=== PATIENT | female | born 1985 | race Caucasian/White ===

== ENCOUNTER 2022-05-24 17:51 | Inpatient (IN) | payer OTHER ==
[2022-05-24 18:43] VITALS: BMI 26.5
[2022-05-24] MEDS ORDERED: IBUPROFEN 400 MG TABLET (FP) PO PRN (19:58)
[2022-05-24] MEDS ORDERED: BISMUTH SUBSALICYLATE 524 MG/30 ML PO PRN (19:58)
[2022-05-24] MEDS ORDERED: guaiFENesin 600 MG TABLET.ER (FP) PO PRN (19:58)
[2022-05-24] MEDS ORDERED: MAG HYDROX/AL HYDROX/SIMETH 30 ML UNIT-DOSE CUP PO PRN (19:58)
[2022-05-24] MEDS ORDERED: BENZOCAINE/MENTHOL (CHLORASEPTIC ) LOZENGE MM PRN (19:58)
[2022-05-24] MEDS ORDERED: P-EPHED 60MG/TRIPROLIDI 2.5MG TABLET PO PRN (19:58)
[2022-05-24] MEDS ORDERED: NICOTINE 10 MG CARTRIDGE (INHALER) IH PRN (19:58)
[2022-05-24] MEDS ORDERED: POLYETHYLENE GLYCOL (HEALTHYLAX) 3350 17 GM PACKET PO PRN (19:58)
[2022-05-24] MEDS ORDERED: IBUPROFEN 600 MG TABLET (FP) PO PRN (19:58)
[2022-05-24] MEDS ORDERED: BENZONATATE 200 MG CAPSULE PO PRN (19:58)
[2022-05-24] MEDS ORDERED: DICYCLOMINE HCL 10 MG CAPSULE PO PRN (19:58)
[2022-05-24] MEDS ORDERED: LOPERAMIDE HCL 2 MG CAPSULE PO PRN (19:58)
[2022-05-24] MEDS ORDERED: MAGNESIUM HYDROX 2400MG/30ML ORAL SUSPENSION 30 ML CUP PO PRN (19:58)
[2022-05-24] MEDS ORDERED: chlordiazePOXIDE HCL 25 MG CAPSULE PO PRN (20:00)
[2022-05-24] MEDS ORDERED: chlordiazePOXIDE HCL 25 MG CAPSULE ONE (20:41)
[2022-05-24] MEDS ORDERED: ONDANSETRON *ODT* 4 MG TABLET ONE (20:41)
[2022-05-24] MEDS ORDERED: chlordiazePOXIDE HCL 25 MG CAPSULE PO ONE (20:45)
[2022-05-24] MEDS: ONDANSETRON *ODT* 4 MG TABLET SL PRN (20:48)
[2022-05-24] MEDS: MELATONIN 5 MG TABLETS PO SCH (22:33)
[2022-05-24] MEDS: BACITRACIN 0.9 GM PACKET TP SCH (22:33)
[2022-05-24] MEDS: THIAMINE HCL 100 MG TABLET (FP) PO SCH (22:34)
[2022-05-24] MEDS: chlordiazePOXIDE HCL 25 MG CAPSULE PO SCH (22:34)
[2022-05-24] MEDS: METHOCARBAMOL 500 MG TABLET PO PRN (22:37)
[2022-05-25] MEDS: chlordiazePOXIDE HCL 25 MG CAPSULE PO SCH ×4 (05:09→22:12)
[2022-05-25] MEDS: hydrOXYzine PAMOATE 25 MG CAPSULE (FP) PO PRN ×2 (07:09→18:30)
[2022-05-25] MEDS: NICOTINE POLACRILEX 2 MG GUM BUC PRN ×3 (07:10→22:15)
[2022-05-25] MEDS: BACITRACIN 0.9 GM PACKET TP SCH ×2 (09:58→22:11)
[2022-05-25] MEDS: PRENATAL VITAMINS W/ FOLIC ACID TABLET (FP) PO SCH (09:59)
[2022-05-25] MEDS: ONDANSETRON *ODT* 4 MG TABLET SL PRN (10:02)
[2022-05-25] MEDS ORDERED: PATIENT'S OWN MEDICATION (NON-FORMULARY) (Lithium Carbonate [Lithobid] 300 MG Tablet.Er) PO SCH (11:00)
[2022-05-25 11:49] LABS: HEMATOCRIT 31.5 % (32.4-45.2); HEMOGLOBIN 10.1 GM/dL (10.7-15.3); MCH 25.2 pg (25.7-33.7); MEAN CELL VOLUME 78.7 fl (80-96); MEAN PLT VOLUME 6.6 fl (7.5-11.1); PLATELET COUNT 440 10^3/uL (134-434); RDW 21.9 % (11.6-15.6); WHITE BLOOD COUNT 8.4 K/mm3 (4.0-10.0)
[2022-05-25] MEDS: LITHIUM CARBONATE 300 MG CAPSULE PO SCH ×2 (11:52→22:12)
[2022-05-25] MEDS: VENLAFAXINE HCL 150 MG E.R. CAPSULE PO SCH (11:52)
[2022-05-25 11:57] LABS: CALCIUM 8.6 mg/dL (8.5-10.1)
[2022-05-25 11:58] LABS: ALBUMIN 3.3 g/dl (3.4-5.0); BLOOD UREA NITROGEN 15.6 mg/dL (7-18)
[2022-05-25 11:59] LABS: CREATININE 0.7 mg/dL (0.55-1.3)
[2022-05-25 12:00] LABS: BILIRUBIN,TOTAL 0.6 mg/dL (0.2-1); TOT PROT 6.4 g/dl (6.4-8.2)
[2022-05-25] MEDS: ACETAMINOPHEN 325 MG TABLET (FP) PO PRN ×2 (14:17→22:14)
[2022-05-25 16:21] LABS: PH,URINE 5.5 (5.0-8.0); URINE APPEARANCE TURBID; URINE BILIRUBIN NEGATIVE (NEGATIVE); URINE COLOR YELLOW; URINE GLUCOSE (UA) NEGATIVE (NEGATIVE); URINE KETONE NEGATIVE (NEGATIVE); URINE LEUK ESTERASE NEGATIVE (NEGATIVE); URINE NITRITE NEGATIVE (NEGATIVE); URINE PROTEIN TRACE (NEGATIVE); URINE UROBILINOGEN 0.2 mg/dL (0.2-1.0)
[2022-05-25] MEDS: METHOCARBAMOL 500 MG TABLET PO PRN (18:30)
[2022-05-25] MEDS ORDERED: PRAZOSIN HCL 1 MG CAPSULE PO SCH (22:00)
[2022-05-25] MEDS ORDERED: MIRTAZAPINE 30 MG TABLET PO SCH (22:00)
[2022-05-25] MEDS: MELATONIN 5 MG TABLETS PO SCH (22:11)
[2022-05-25] MEDS: THIAMINE HCL 100 MG TABLET (FP) PO SCH (22:11)
[2022-05-25] MEDS ORDERED: MIRTAZAPINE 15 MG TABLET (FP) ONE (22:13)
[2022-05-26] MEDS ORDERED: chlordiazePOXIDE HCL 25 MG CAPSULE PO SCH (05:00)
[2022-05-26 07:14] VITALS: RESP 18
[2022-05-26 09:59] VITALS: BP 126/73; PULSE 61; TEMP 97.8
[2022-05-26] MEDS: PRENATAL VITAMINS W/ FOLIC ACID TABLET (FP) PO SCH (10:15)
[2022-05-26] MEDS: BACITRACIN 0.9 GM PACKET TP SCH (10:15)
[2022-05-26] MEDS: VENLAFAXINE HCL 150 MG E.R. CAPSULE PO SCH (10:15)
[2022-05-26] MEDS: LITHIUM CARBONATE 300 MG CAPSULE PO SCH (10:15)
[2022-05-27] MEDS ORDERED: chlordiazePOXIDE HCL 10 MG CAPSULE PO PRN
[2022-05-27] MEDS ORDERED: chlordiazePOXIDE HCL 10 MG CAPSULE PO SCH (05:00)
[2022-05-28] MEDS ORDERED: chlordiazePOXIDE HCL 10 MG CAPSULE PO SCH (05:00)
[2022-05-29] MEDS ORDERED: chlordiazePOXIDE HCL 10 MG CAPSULE PO ONE (05:00)
== END 2022-05-26 10:25 | disposition home or self-care (01) | DRG 897 ==
LOC: YASAS 17:51 → Y3N 20:33
PROVIDERS: ADMIT Allergy & Immunology; ATTEND Surgery
PROC: HZ2ZZZZ Detoxification Services for Substance Abuse Treatment (ICD-10-PCS; principal; 2022-05-24)
DX: F10.230 Alcohol dependence with withdrawal, uncomplicated (principal); F14.20 Cocaine dependence, uncomplicated; F13.20 Sedative, hypnotic or anxiolytic dependence, uncomplicated; F17.210 Nicotine dependence, cigarettes, uncomplicated; F31.9 Bipolar disorder, unspecified; F43.10 Post-traumatic stress disorder, unspecified; I10 Essential (primary) hypertension; E78.5 Hyperlipidemia, unspecified; Z62.810 Personal history of physical and sexual abuse in childhood; Z91.410 Personal history of adult physical and sexual abuse; Z98.84 Bariatric surgery status
CPT/HCPCS: 36415; 80053; 80178; 81003; 81025; 85027; 86780; C9803-CS; Q0162; U0003; U0005